=== PATIENT | male | born 1995 | race Caucasian/White ===

== ENCOUNTER 2018-10-26 17:54 | Emergency (ER) | payer OTHER, MEDICAID, SELFPAY ==
[2018-10-26 18:02] VITALS: BP 132/88; PULSE 98; RESP 14; TEMP 37.3; O2SAT 98; BMI 22.9
[2018-10-26] MEDS: ONDANSETRON 4 MG ODT PO (18:09)
[2018-10-26 18:29] LABS: Add Manual Diff / Slide Review NO; Basophils Percent Auto 0.9 % (0-2); Eosinophils Percent Auto 1.7 % (2-4); Hematocrit 43.3 % (41-53); Hemoglobin 14.7 g/dL (13.5-17.5); Lymphocytes Percent Auto 25.3 % (25-40); Mean Corpuscular HGB Conc 33.8 % (30-36); Mean Corpuscular Hemoglobin 28.5 PG (26-34); Mean Corpuscular Volume 84.1 fL (80-100); Neutrophils Absolute Auto 3400 /uL (3000-5900); Neutrophils Percent Auto 63.1 % (50-75); Platelet Count 153 X10^3/uL (150-400); Red Blood Cell Count 5.15 X10^6/uL (4.5-5.9); Red Cell Distribution Width 12.9 % (11.6-14.8); White Blood Cell Count 5.3 X10^3/uL (4.5-11.0)
[2018-10-26 18:37] LABS: Alanine Aminotransferase 74 IU/L (21-72); Albumin 4.8 g/dL (3.5-5.0); Albumin Globulin Ratio 1.8 (1.0-2.8); Alkaline Phosphatase 80 U/L (38-126); Aspartate Aminotransferase 31 IU/L (17-59); BUN Creatinine Ratio 17.5 (6-22); Bilirubin Total 0.6 mg/dL (0.2-1.3); Blood Urea Nitrogen 14 mg/dL (9-20); Calcium 9.7 mg/dL (8.4-10.2); Carbon Dioxide 24 mmol/L (22-32); Chloride 103 mmol/L (98-107); Estimated Glomerular Filt Rate > 60.0 mL/min (>60); Globulin 2.6 g/dL (1.7-4.1); Glucose 108 mg/dL (70-100); HEMOLYSIS < 15 (0-50); Potassium 3.7 mmol/L (3.4-5.1); Sodium 142 mmol/L (137-145); Total Protein 7.4 g/dL (6.3-8.2)
[2018-10-26 18:38] LABS: Lipase 154 U/L (23-300)
--- NOTE | 2018-10-26 19:16 | ED.NAVMDI ---
HPI - Nausea/Vomiting/Diarrhea General Chief complaint: Nausea/Vomiting/Diarrhea Stated complaint: Claminess,low blood pressure,nausea Time Seen by Provider: 10/26/18 19:16 Related Data Home Medications Medication Instructions Recorded Confirmed No Known Home Medications 10/26/18 10/26/18 Allergies Allergy/AdvReac Type Severity Reaction Status Date / Time No Known Drug Allergies Allergy Verified 10/26/18 18:06 [facility] Social History Smoking Status: Never smoker Exam Initial Vital Signs Initial Vital Signs: Vital Signs Temperature 99.2 F 10/26/18 18:02 Pulse Rate 98 H 10/26/18 18:02 Respiratory Rate 14 10/26/18 18:02 Blood Pressure 132/88 10/26/18 18:02 Pulse Oximetry 98 10/26/18 18:02 Course Orders Ordered: ED Orders 10/26/18 18:11 Complete Blood Count AUTO DIFF Stat Comprehensive Metabolic Panel Stat Lipase Stat Discontinued Medications Ondansetron HCl (Zofran Odt) 4 mg PO NOW ONE Stop: 10/26/18 18:07 Last Admin: 10/26/18 18:09 Dose: 4 mg Vital Signs - 8 hr 10/26/18 18:02 Temperature 99.2 F Pulse Rate 98 H Respiratory Rate 14 Blood Pressure 132/88 Pulse Oximetry 98 MDM - Nausea/Vomiting/Diarrhea Lab Data Result diagrams: 10/26/18 18:11 10/26/18 18:11 Lab Results 10/26/18 10/26/18 10/26/18 Range/Units 18:11 18:11 18:11 WBC 5.3 (4.5-11.0) X10^3/uL RBC 5.15 (4.5-5.9) X10^6/uL Hgb 14.7 (13.5-17.5) g/dL Hct 43.3 (41-53) % MCV 84.1 (80-100) fL MCH 28.5 (26-34) PG MCHC 33.8 (30-36) % RDW 12.9 (11.6-14.8) % Plt Count 153 (150-400) X10^3/uL Neut % (Auto) 63.1 (50-75) % Lymph % (Auto) 25.3 (25-40) % [place] % (Auto) 9.0 (3-14) % Eos % (Auto) 1.7 L (2-4) % Baso % (Auto) 0.9 (0-2) % Neut # (Auto) 3400 (5555-3546) /uL Sodium 142 (137-145) mmol/L Potassium 3.7 (3.4-5.1) mmol/L Chloride 103 (98-107) mmol/L Carbon Dioxide 24 (22-32) mmol/L BUN 14 (9-20) mg/dL Creatinine 0.80 (0.66-1.25) mg/dL Estimated GFR > 60.0 (>60) mL/min BUN/Creatinine Ratio 17.5 (6-22) Glucose 108 H (70-100) mg/dL Calcium 9.7 (8.4-10.2) mg/dL Total Bilirubin 0.6 (0.2-1.3) mg/dL AST 31 (17-59) IU/L ALT 74 H (21-72) IU/L Alkaline Phosphatase 80 (38-126) U/L Total Protein 7.4 (6.3-8.2) g/dL Albumin 4.8 (3.5-5.0) g/dL Globulin 2.6 (1.7-4.1) g/dL Albumin/Globulin Ratio 1.8 (1.0-2.8) Lipase 154 (23-300) U/L Discharge Plan Departure Prescriptions: No Action No Known Home Medications RF: 0
--- NOTE | 2018-10-26 19:28 | ED_ITS ---
HPI - Nausea/Vomiting/Diarrhea <LALO Rouse - Last Filed: 10/26/18 22:39> General Chief complaint: Nausea/Vomiting/Diarrhea Stated complaint: Claminess,low blood pressure,nausea Time Seen by Provider: 10/26/18 19:16 Source: patient Mode of arrival: ambulatory Limitations: no limitations History of Present Illness HPI Narrative: Healthy 23-year-old male that is a nonsmoker here for complaint of having nausea and epigastric pain over the past 2 days. He states that he woke up in the middle the night day before yesterday felt like he had chills and had a repeat episode earlier this morning. He denies any vomiting. Last bowel movement was this morning was unremarkable. He denies any flank pain. He denies any urinary symptoms. He denies any other concerns or complaints this time. No known fevers. Related Data Previous Rx's Medication Instructions Recorded ondansetron 4 mg PO Q6-8H PRN #8 tab 10/26/18 Allergies Allergy/AdvReac Type Severity Reaction Status Date / Time No Known Drug Allergies Allergy Verified 10/26/18 18:06 Review of Systems <LALO Rouse - Last Filed: 10/26/18 22:39> Constitutional Denies chills, Denies fever(s), Denies lethargy and Denies weakness Eyes Denies change in vision, Denies eye discharge, Denies irritation and Denies loss of vision ENT Ears, Nose, Mouth, and Throat: Denies change in voice, Denies neck pain and Denies sore throat Cardiovascular Denies chest pain, Denies irregular heart rhythm, Denies lightheadedness, Denies palpitations, Denies dyspnea, Denies dyspnea on exertion and Denies orthopnea Respiratory Denies cough, Denies dyspnea, Denies dyspnea on exertion and Denies wheezing Gastrointestinal Gastrointestinal: Reports abdominal pain and Reports nausea Genitourinary Denies hematuria, Denies flank pain, Denies urinary incontinence and Denies urinary urgency Musculoskeletal Denies neck pain Integumentary/Breasts Denies pruritus, Denies erythema, Denies rash and Denies wounds Neurologic Denies confusion, Denies loss of vision and Denies weakness Psychiatric Denies anxiety, Denies confusion, Denies depression, Denies homicidal ideation and Denies suicidal ideation Endocrine Denies palpitations Hematologic/Lymphatic Denies easy bruising Allergic/Immunologic Denies wheezing Exam <LALO Rouse - Last Filed: 10/26/18 22:39> Initial Vital Signs Initial Vital Signs: Vital Signs Temperature 99.2 F 10/26/18 18:02 Pulse Rate 98 H 10/26/18 18:02 Respiratory Rate 14 10/26/18 18:02 Blood Pressure 132/88 10/26/18 18:02 Pulse Oximetry 98 10/26/18 18:02 Const General: cooperative and well developed Nutritional Appearance: well nourished Orientation: alert, awake, oriented x3 and not confused HENMS Mouth: oral mucosae normal and moist mucous membranes Eyes Conjunctivae: conjunctivae normal Sclera: sclerae normal Pupils: PERRL EOM: EOM intact bilaterally Chest Chest: normal inspection of the chest Resp Effort & Inspection: normal respiratory effort, able to speak in complete sentences, no respiratory distress and no use of accessory muscles Auscultation: clear to auscultation bilaterally, no rales, no rhonchi and no wheezes Cardio Rate: regular rate Rhythm: regular rhythm Heart Sounds: no click, no gallops, no murmurs and no rubs GI Inspection: non-distended Palpation: soft, no hepatosplenomegaly, No guarding, No pulsatile mass and No tender Auscultation: normal bowel sounds General: No CVA tenderness Skin General: no rashes or lesions noted, No jaundice and No petechiae Neuro General: alert, oriented x3, gait normal and no focal motor deficits Speech: speech normal <Enrico Aguilar DO - Last Filed: 10/27/18 00:32> Initial Vital Signs Initial Vital Signs: Vital Signs Temperature 99.2 F 10/26/18 18:02 Pulse Rate 98 H 10/26/18 18:02 Respiratory Rate 14 10/26/18 18:02 Blood Pressure 132/88 10/26/18 18:02 Pulse Oximetry 98 10/26/18 18:02 Course <ALLO Rouse - Last Filed: 10/26/18 22:39> Orders Ordered: ED Orders 10/26/18 18:11 Complete Blood Count AUTO DIFF Stat Comprehensive Metabolic Panel Stat Lipase Stat Discontinued Medications Ondansetron HCl (Zofran Odt) 4 mg PO NOW ONE Stop: 10/26/18 18:07 Last Admin: 10/26/18 18:09 Dose: 4 mg Vital Signs - 8 hr 10/26/18 18:02 10/26/18 20:09 Temperature 99.2 F 99.2 F Pulse Rate 98 H 98 H Respiratory Rate 14 14 Blood Pressure 132/88 132/88 Pulse Oximetry 98 98 <Enrico Aguilar DO - Last Filed: 10/27/18 00:32> Orders Ordered: ED Orders 10/26/18 18:11 Complete Blood Count AUTO DIFF Stat Comprehensive Metabolic Panel Stat Lipase Stat Discontinued Medications Ondansetron HCl (Zofran Odt) 4 mg PO NOW ONE Stop: 10/26/18 18:07 Last Admin: 10/26/18 18:09 Dose: 4 mg Vital Signs - 8 hr 10/26/18 18:02 10/26/18 20:09 Temperature 99.2 F 99.2 F Pulse Rate 98 H 98 H Respiratory Rate 14 14 Blood Pressure 132/88 132/88 Pulse Oximetry 98 98 MDM - Nausea/Vomiting/Diarrhea <LALO Rouse - Last Filed: 10/26/18 22:39> Lab Data Result diagrams: 10/26/18 18:11 10/26/18 18:11 Lab Results 10/26/18 10/26/18 10/26/18 Range/Units 18:11 18:11 18:11 WBC 5.3 (4.5-11.0) X10^3/uL RBC 5.15 (4.5-5.9) X10^6/uL Hgb 14.7 (13.5-17.5) g/dL Hct 43.3 (41-53) % MCV 84.1 (80-100) fL MCH 28.5 (26-34) PG MCHC 33.8 (30-36) % RDW 12.9 (11.6-14.8) % Plt Count 153 (150-400) X10^3/uL Neut % (Auto) 63.1 (50-75) % Lymph % (Auto) 25.3 (25-40) % [place] % (Auto) 9.0 (3-14) % Eos % (Auto) 1.7 L (2-4) % Baso % (Auto) 0.9 (0-2) % Neut # (Auto) 3400 (8378-6211) /uL Sodium 142 (137-145) mmol/L Potassium 3.7 (3.4-5.1) mmol/L Chloride 103 (98-107) mmol/L Carbon Dioxide 24 (22-32) mmol/L BUN 14 (9-20) mg/dL Creatinine 0.80 (0.66-1.25) mg/dL Estimated GFR > 60.0 (>60) mL/min BUN/Creatinine Ratio 17.5 (6-22) Glucose 108 H (70-100) mg/dL Calcium 9.7 (8.4-10.2) mg/dL Total Bilirubin 0.6 (0.2-1.3) mg/dL AST 31 (17-59) IU/L ALT 74 H (21-72) IU/L Alkaline Phosphatase 80 (38-126) U/L Total Protein 7.4 (6.3-8.2) g/dL Albumin 4.8 (3.5-5.0) g/dL Globulin 2.6 (1.7-4.1) g/dL Albumin/Globulin Ratio 1.8 (1.0-2.8) Lipase 154 (23-300) U/L Urine Dip Bedside Urine Glucose Negative Bedside Urine Bilirubin - Negative Bedside Urine Ketone - Negative Urine Specific [place] 1.010 Bedside Urine Occult Blood - Negative Bedside Urine pH 6.0 Bedside Urine Protein - Negative Bedside Urine Urobilinogen - Negative Bedside Urine Nitrite - Negative Bedside Urine Leukocytes - Negative Esterase MDM Narrative Medical decision making narrative: CBC was obtained and was unremarkable. Chem panel was obtained and was unremarkable. Urinalysis was negative for urinary tract infection. Lipase was negative. No tenderness on exam to abdomen. He is tolerating p.o. intake. No tenderness on exam. Suspect viral illness. Will treat conservatively at this point with Zofran for nausea. Will hold on imaging as of this time. Tylenol as needed for any fever or chills. Follow up with primary care provider next week for re-evaluation. For any worsening symptoms return to the emergency room. <Enrico Aguilar DO - Last Filed: 10/27/18 00:32> Lab Data Lab Results 10/26/18 10/26/18 10/26/18 Range/Units 18:11 18:11 18:11 WBC 5.3 (4.5-11.0) X10^3/uL RBC 5.15 (4.5-5.9) X10^6/uL Hgb 14.7 (13.5-17.5) g/dL Hct 43.3 (41-53) % MCV 84.1 (80-100) fL MCH 28.5 (26-34) PG MCHC 33.8 (30-36) % RDW 12.9 (11.6-14.8) % Plt Count 153 (150-400) X10^3/uL Neut % (Auto) 63.1 (50-75) % Lymph % (Auto) 25.3 (25-40) % [place] % (Auto) 9.0 (3-14) % Eos % (Auto) 1.7 L (2-4) % Baso % (Auto) 0.9 (0-2) % Neut # (Auto) 3400 (2662-4839) /uL Sodium 142 (137-145) mmol/L Potassium 3.7 (3.4-5.1) mmol/L Chloride 103 (98-107) mmol/L Carbon Dioxide 24 (22-32) mmol/L BUN 14 (9-20) mg/dL Creatinine 0.80 (0.66-1.25) mg/dL Estimated GFR > 60.0 (>60) mL/min BUN/Creatinine Ratio 17.5 (6-22) Glucose 108 H (70-100) mg/dL Calcium 9.7 (8.4-10.2) mg/dL Total Bilirubin 0.6 (0.2-1.3) mg/dL AST 31 (17-59) IU/L ALT 74 H (21-72) IU/L Alkaline Phosphatase 80 (38-126) U/L Total Protein 7.4 (6.3-8.2) g/dL Albumin 4.8 (3.5-5.0) g/dL Globulin 2.6 (1.7-4.1) g/dL Albumin/Globulin Ratio 1.8 (1.0-2.8) Lipase 154 (23-300) U/L Urine Dip Bedside Urine Glucose Negative Bedside Urine Bilirubin - Negative Bedside Urine Ketone - Negative Urine Specific [place] 1.010 Bedside Urine Occult Blood - Negative Bedside Urine pH 6.0 Bedside Urine Protein - Negative Bedside Urine Urobilinogen - Negative Bedside Urine Nitrite - Negative Bedside Urine Leukocytes - Negative Esterase Discharge Plan Departure Patient Disposition: Home Clinical Impression: Nausea Discharge Date/Time: 10/26/18 20:30 Interventions: ED Discharge Assessment Last Done: 10/26/18 20:30 Instructions: DI for Nausea -- Adult Activity Restrictions/Additional Instructions: Laboratory results today were unremarkable. Signs and symptoms presents as a viral illness. Supportive care with plenty of fluids. Zofran is prescribed to help with nausea use as directed. [id number] Tylenol as needed for fever chills. Follow up with primary care provider next week. For any worsening symptoms return to the emergency room. Prescriptions: New ondansetron 4 mg tablet,disintegrating 4 mg PO Q6-8H PRN (Reason: nausea and vomiting) Qty: 8 RF: 0 Referrals: [facility] [Provider Group] <Enrico Aguilar DO - Last Filed: 10/27/18 00:32> Cosign ED Attending Mohit Attestation: I was available for consultation during this patient's emergency department encounter
[2018-10-26 20:09] VITALS: BP 132/88; PULSE 98; RESP 14; TEMP 37.3; O2SAT 98; BMI 22.9
== END 2018-10-26 20:30 | disposition home or self-care (01) ==
PROVIDERS: Emergency Medicine; Emergency Provider Nurse Practitioner Family
DX: R11.0 Nausea (principal)
CPT/HCPCS: 36415; 80053; 81003; 83690; 85025; 99282; 99283